=== PATIENT | male | born 1940 | race Caucasian/White ===

== ENCOUNTER → 2019-07-14 | Day surgery (SDC) | payer OTHER ==
[~2019-07-14] VITALS: Ht 177.8 cm; Wt 94.3 kg
[~2019-07-14] MED LIST: ASA81BEC PO; BACITRACIN-POL3.5 GM OPHTHALMIC; BACLOFEN 10MG T10 MG PO; CALCIUM 600 +1 EAC8 PO; CEFDINIR300 MG PO; DILTIAZEM ER120 MG PO; FISH OIL 1,0001 EAC9 PO; GLIPIZIDE 10 MG10 MG PO; GLIPIZIDE ER10 MG PO; GLUCOPHAGE1000 MG PO; HUMULIN N100 UNIT/1 SUBQ; HYTRIN 1 MG CAP1 MG PO; LOVASTAT20 PO; MOXIFLOXACIN3 ML OPHTHALMIC; NORCO 10-325 T1 EACH PO; NORTRIPTYLINE H10 M1 PO; OMEPRAZOLE 20 M20 M1 PO; PRINIVIL20 M1 PO; VITAMIN B-121000 MC2 PO
[2019-07-14 15:56] VITALS: BP 146/84
--- NOTE | 2019-07-15 08:36 | EKG ---
[place] [address] [facility] [place] [address] ELECTROCARDIOGRAM REPORT Name: SAMIA DESHPANDE Room #: REG [facility].#: [id number] Admission: 07/14/19 Attend Phys: Felix Terry MD Discharge: Date of : 36 Report #: [id number] THIS REPORT FOR: //name// [facility] Test Date: 2019-07-14 Test Time: 15:31:23 Pat Name: SAMIA DESHPANDE Department: Room: Gender: Archives Technician: [place] : 1940 Requested By: Felix Terry Order Number: [id number] MD: Neal Hines Measurements Intervals [place] Rate: 76 P: -13 NM: 189 QRS: -66 QRSD: 118 T: 96 QT: 403 QTc: 454 Interpretive Statements Sinus rhythm Incomplete RBBB and LAFB Nonspecific T abnormalities, lateral leads No previous ECG available for comparison Electronically Signed On 07-15-2019 8:36:39 CDT by Neal Hines [email or web address] <ELECTRONICALLY SIGNED> By: Neal Hines MD 07/15/19 0836 1531 1531 Neal Hines MD /MICKEY
--- NOTE | 2019-07-16 17:06 | PATH ---
[facility] [address] [place] [address] PATHOLOGY RPT PROCEDURE Name: JORGE CANDELARIA Room #: [place] [facility] [place].#: [id number] Admission: 07/14/19 Date of : 36 Discharge: Report #: [id number] Path Case #: [id number] [facility] Accession Number: [id number] . 01 Material submitted: . eye - CONTENTS OF RIGHT EYE. Modifiers: right . 01 Clinical history: . Blind painful eye with corneal ulcer . 02 Diagnosis: Contents of right eye, evisceration: - Fragments with marked acute inflammation, fibrinoid degeneration as well as granulation tissue identified in multiple fragments throughout the sample, history of corneal ulcer and blind painful eye. - Prosthetic lens material measuring 0.6 x 0.6 cm present. (IUV:pit; 07/16/2019) QTP 07/16/2019 1527 Local . 02 Electronically signed: . Kimberly Chilel MD, Pathologist NPI- [id number] . 01 Gross description: . The specimen is received in formalin, labeled "Jorge Candelaria, contents of right eye". Received are multiple segments of pale dejesus to white-dejseus, possible scleral tissue admixed with possible corneal and lens tissue measuring 4.5 x 3.0 x 1.8 cm in aggregate dimensions. The possible cornea is cloudy and disrupted in appearance. A prosthetic lens is identified measuring 0.6 x 0.6 cm. The optic nerve is not grossly identified. The specimen is submitted representatively in cassettes A1 and A2, to include the entire possible cornea in cassette A1. (CAA; 07/15/2019) QAC/QAC 07/15/2019 0944 Local . 02 Pathologist provided ICD-10: H57.89, H16.001 . 02 CPT . 385103 Specimen Comment: A courtesy copy of this report has been sent to [phone] Specimen Comment: Report sent to Performed at: [address] [id number] MD Arian Simons MD Phone: [phone] Performed at: 02 [place] [address] PATHOLOGY RPT PROCEDURE Name: JORGE CANDELARIA Room #: [place] [facility] [place].R.#: [id number] Admission: 07/14/19 Date of : 36 Discharge: Report #: [id number] Path Case #: [id number] [facility] [address], [place], [place] [id number] MD Kimberly Chilel MD Phone: [phone]
--- NOTE | 2019-07-21 06:18 | O ---
[facility] [place] [address] OPERATIVE REPORT Name: SAMIA DESHPANDE Room #: REG [facility]#: [id number] Admission: 07/14/19 Attend Phys: Felix Terry MD Discharge: Date of : 36 Report #: [id number] THIS REPORT FOR: //name// CC: ALFONSO RABAGO MD Physician staff Felix Terry DATE OF SERVICE: 07/14/2019 PREOPERATIVE DIAGNOSIS: Blind painful right eye. POSTOPERATIVE DIAGNOSIS: Blind painful right eye. PROCEDURE: Evisceration, right eye. SURGEON: Felix Terry MD. HIDE AND SKIN PROCESSING WORKER: None. ANESTHESIA: General. COMPLICATIONS: None. INDICATIONS FOR SURGERY: This pleasant 79-year-old gentleman had a right-sided corneal ulcer that progressed to endophthalmitis. He has an irreversibly blinded painful right eye. He presents today after having been treated with antibiotics in order to remove the contents of the eye to improve his level of comfort and aid in resolution of his infection. Informed consent was obtained to include but not limited to the potential risk for bleeding, infection and the potential need for further surgery or treatment. DESCRIPTION OF PROCEDURE: The patient was taken to the operating room where general anesthesia was administered. The patient then had the right socket anesthetized with Xylocaine with epinephrine mixed with Marcaine and Wydase. He was subsequently prepped and draped in the usual sterile fashion. A lid speculum was placed on the right eye. The right cornea was largely liquified. An incision was then made around the limbus 360 degrees with a 15 blade. The cornea was then removed utilizing a technique very similar to capsulorrhexis as the cornea just lifted off of the underlying collapsed iris and anterior chamber. The sclera in this area was mushy. An evisceration spoon was then used to dissect free the uvea from the underlying sclera 360 degrees. The posterior sclerae appeared to be largely intact, so as to say it was not mushy. A diligent effort was made to remove all of the [facility] [address] [place] [address] OPERATIVE REPORT Name: SAMIA DESHPANDE Room #: [place] [facility] [place].#: [id number] Admission: 07/14/19 Attend Phys: Felix Terry MD Discharge: Date of : 36 Report #: [id number] visible uvea, which was submitted in one specimen container. The mushy sclerae that was necrotic around the corneal limbus was then excised with a Agustin scissor back to normal appearing tissue. The conjunctiva, which was tremendously edematous and friable, was allowed to drape over the sclerae. Bacitracin irrigation solution was then placed in the scleral shell and allowed to sit for several minutes. It was then aspirated and the sites of bleeding were cauterized with monopolar cautery. Bacitracin ointment was then squirted in the scleral shell and on the conjunctivae. The eye was then dressed with Telfa pad and 2 eye pads, which were held in place with silk tape without the use of Mastisol or any other adhesive accelerator. The patient was subsequently transported to the recovery area having tolerated the procedure well with no anesthetic or operative complications being noted. <ELECTRONICALLY SIGNED> By: Felix Terry MD 07/21/19 0618 1639 1739 Felix Terry MD /nt
== END | disposition home or self-care (01) ==
LOC: OR 07-08 09:22 → EDSEX 14:53 → OR 16:03
DX: H54.415A Blindness right eye category 5, normal vision left eye (principal); I10 Essential (primary) hypertension; E78.00 Pure hypercholesterolemia, unspecified; K21.9 Gastro-esophageal reflux disease without esophagitis; E11.9 Type 2 diabetes mellitus without complications; M19.90 Unspecified osteoarthritis, unspecified site; Z98.890 Other specified postprocedural states; Z88.8 Allergy status to other drugs, medicaments and biological substances; Z98.0 Intestinal bypass and anastomosis status; Z87.891 Personal history of nicotine dependence; Z79.4 Long term (current) use of insulin; Z79.82 Long term (current) use of aspirin; Z79.899 Other long term (current) drug therapy
CPT/HCPCS: 50010; 50101; 50386; 50398; 51636; 62110; 62900; 70005